=== PATIENT | male | born 1950 | race Caucasian/White ===

== ENCOUNTER 2020-05-07 18:55 | Inpatient (IN) | payer MEDICARE, OTHER ==
[~2020-05-07] VITALS: Ht 170.2 cm; Wt 107.5 kg
--- NOTE | 2020-05-07 19:10 | NUR ---
PT AAO4. FARSI SPEAKING. BIBRA FROM HOME C/O SYNCOPAL EPISODE X4HRS AGO. PT'S BROTHER HAD NOT HEARD FROM THE PT, CALLED 911, PT WAS FOUND ON THE FLOOR AT HIS HOUSE. UPON ASSESSMENT PT AAOX4, ABLE TO MOVE ALL EXT, DENIES ANY PAIN, VSS. PT DOES HAVE HX OF HTN AND DIABETES, BG 116. PT'S MOUTH APPEARD TO BE DRY. MD AT BEDSIDE FOR EVAL. AWAITING OREDRS.
--- NOTE | 2020-05-07 19:11 | NUR ---
LINE ESTABLISHED LAC 18G, BLOOD WORK COLLECTED, SENT TO LAB.
--- NOTE | 2020-05-07 19:19 | NUR ---
PT UNABLE TO URINATE. WILL WAIT FOR 1L NS TO INFUSE.
[2020-05-07] MEDS ORDERED: IV NS 0.9% 1,000 ML BAG IV ONE (19:30)
--- NOTE | 2020-05-07 19:39 | NUR ---
NELLYID SWABBED, SENT TO LAB.
[2020-05-07 19:42] LABS: BASOPHILS % (AUTO) 0.3 % (0.0-2.0); EOSINOPHILS % (AUTO) 0.1 % (0.0-6.0); HEMATOCRIT 43 % (39-51); HEMOGLOBIN 14.9 g/dL (13.5-17.5); LYMPHOCYTES # (AUTO) 0.4 /CMM (0.8-4.8); MEAN CORPUSCULAR HGB CONC 35 g/dl (31.0-36.0); MEAN CORPUSCULAR VOLUME 87 fL (80-96); MONOCYTES # (AUTO) 0.7 /CMM (0.1-1.30); MONOCYTES % (AUTO) 8.5 % (2.0-12.0); NEUTROPHILS # (AUTO) 7.4 /CMM (1.8-8.9); NEUTROPHILS % (AUTO) 86.1 % (43.0-81.0); PLATELET COUNT (AUTO) 187 /CMM (150-450); RED BLOOD CELL COUNT(AUTO) 4.96 MIL/uL (4.5-6.0); WHITE BLOOD COUNT (AUTO) 8.5 K/uL (4.3-11.0)
[2020-05-07 19:55] LABS: CALCIUM, SERUM 9.5 mg/dL (8.5-10.1); CARBON DIOXIDE 32 mmol/L (21-32); CHLORIDE 96 mmol/L (98-107); GLUCOSE 132 mg/dL (74-106); POTASSIUM 3.5 mmol/L (3.5-5.1); SODIUM SERUM 138 mmol/L (136-145); UREA NITROGEN, BLOOD 18 mg/dL (7-18)
[2020-05-07 20:01] LABS: ALANINE AMINOTRANSFERASE 43 U/L (12-78); ALKALINE PHOSPHATASE 82 U/L (46-116); ASPARTATE AMINOTRANSFERASE 71 U/L (15-37); BILIRUBIN,DIRECT 0.2 mg/dL (0.0-0.2); BILIRUBIN,TOTAL 0.9 mg/dL (0.2-1.0); TOTAL PROTEIN, SERUM 7.9 g/dL (6.4-8.2)
--- NOTE | 2020-05-07 20:12 | NUR ---
BROUGHT TO CT
--- NOTE | 2020-05-07 20:30 | NUR ---
BACK FROM CT.
--- NOTE | 2020-05-07 20:30 | NUR ---
PT UNABLE TO PROVIDE URINE SAMPLE, AWARE.
--- NOTE | 2020-05-07 20:39 | NUR ---
LAB CALLED REGARDING NEGATIVE COVID RESULT.
--- NOTE | 2020-05-07 20:45 | NUR ---
PT SAT 91-94%. PT ASLEEP, BREATHING FROM HIS MOUTH. WILL PLACE PT ON NC.
--- NOTE | 2020-05-07 22:14 | NUR ---
BED ASSIGNMENT 325-1
--- NOTE | 2020-05-07 22:26 | NUR ---
REPORT CALLED TO SUBSTATION OPERATOR TRANSFORMINGNANO CHRISTIE.
[2020-05-07] MEDS ORDERED: ACETAMINOPHEN 325 MG TABLET PO PRN (23:00)
[2020-05-07] MEDS ORDERED: HYDROCODONE/APAP 5/325MG TABLET PO PRN (23:00)
[2020-05-07] MEDS ORDERED: MAGNESIUM HYDROXIDE 30 ML UDC PO PRN (23:00)
[2020-05-07] MEDS ORDERED: ONDANSETRON HCL/PF 4 MG/2 ML VIAL IVP PRN (23:00)
[2020-05-07] MEDS ORDERED: MAG HYDROX/AL HYDROX/SIMETH 30 ML UDC PO PRN (23:00)
[2020-05-07] MEDS ORDERED: Z GUARD REMEDY 2 OZ OINT TP PRN (23:00)
[2020-05-07] MEDS ORDERED: ZOLPIDEM TARTRATE 5 MG TABLET PO PRN (23:00)
--- NOTE | 2020-05-07 23:10 | NUR ---
PT TRANSFERED PER ACLS PROTOCOL
[2020-05-07 23:16] VITALS: BP 122/70
[2020-05-08] VITALS (7 sets, daily range): BP systolic 122–137; BP diastolic 62–93
[2020-05-08] MEDS: ENOXAPARIN SODIUM 40 MG/0.4 ML DISP.SYRIN SQ SCH ×2 (00:14→23:44)
[2020-05-08 06:23] LABS: BASOPHILS % (AUTO) 0.1 % (0.0-2.0); EOSINOPHILS % (AUTO) 0.4 % (0.0-6.0); HEMATOCRIT 39 % (39-51); HEMOGLOBIN 13.2 g/dL (13.5-17.5); LYMPHOCYTES # (AUTO) 0.7 /CMM (0.8-4.8); LYMPHOCYTES % (AUTO) 9.1 % (20.0-44.0); MEAN CORPUSCULAR HGB CONC 34 g/dl (31.0-36.0); MEAN CORPUSCULAR VOLUME 88 fL (80-96); MONOCYTES # (AUTO) 0.9 /CMM (0.1-1.30); MONOCYTES % (AUTO) 12.1 % (2.0-12.0); NEUTROPHILS # (AUTO) 5.7 /CMM (1.8-8.9); NEUTROPHILS % (AUTO) 78.3 % (43.0-81.0); PLATELET COUNT (AUTO) 161 /CMM (150-450); RED BLOOD CELL COUNT(AUTO) 4.44 MIL/uL (4.5-6.0); WHITE BLOOD COUNT (AUTO) 7.3 K/uL (4.3-11.0)
--- NOTE | 2020-05-08 06:52 | NUR ---
RN NOTES ADMITTED PATIENT FROM ED, FROM HOME, HAD EPISODE OF UNWITNESSED SYNCOPE, BROTHER FOUND PATIENT ON FLOOR, ALERT AND ORIENTED X3, FARSI SPEAKING, WITH LITTLE [place] KOREAN, 2LPM VIA NC PRN WHEN ASLEEP, ROOM AIR SPO2 92%, ON 2LPM VIA NC 97%, NO COMPLAIN OF PAIN, BEDREST, UNSTEADY GAIT, SINUS TACHY 108 ON THE TELE, AM LABS, FALL PRECAUTION
[2020-05-08 07:09] LABS: ALBUMIN 3.3 g/dL (3.4-5.0); BILIRUBIN,DIRECT 0.1 mg/dL (0.0-0.2); BILIRUBIN,TOTAL 0.6 mg/dL (0.2-1.0); CALCIUM, SERUM 8.8 mg/dL (8.5-10.1); CREATININE 0.9 mg/dL (0.6-1.3); PHOSPHORUS 2.9 mg/dL (2.5-4.9); POTASSIUM 3.4 mmol/L (3.5-5.1)
[2020-05-08 07:14] LABS: THYROID STIMULATING HORMONE 1.026 uIU/mL (0.358-3.74)
[2020-05-08] MEDS: PANTOPRAZOLE 40 MG TABLET.DR PO SCH (08:00)
[2020-05-08] MEDS ORDERED: METO1TAB10 PO (08:52)
[2020-05-08] MEDS ORDERED: ASPI-1169 PO (08:52)
[2020-05-08] MEDS ORDERED: LOSA100T3 PO (08:52)
[2020-05-08] MEDS ORDERED: SIMV-46 PO (08:52)
--- NOTE | 2020-05-08 09:00 | NUR ---
MS/gauntlet pairer Morning medications administered as ordered.
--- NOTE | 2020-05-08 09:30 | NUR ---
MS/RN S/B Dr Hood Seen by MD - neuro and cardio consults ordered.
[2020-05-08] MEDS: POTASSIUM CL. PREMIX PERIPHER. 50 ML IV SCH ×2 (09:34→10:03)
--- NOTE | 2020-05-08 11:00 | NUR ---
MS/RN 2D Echo 2D echo carried out, 55% ejection fracture.
--- NOTE | 2020-05-08 13:28 | NUR ---
MS/finished goods planner update Patient's brother called, up date given.
--- NOTE | 2020-05-08 18:23 | NUR ---
MS/RN End note Continue to wait for neuro consult. Per patient, he was recently treated by Dr Alcocer at [facility] and would like to be transferred back. marketing compliance manager Mary Beth made aware, no beds available at this time. Patient informed. All needs attended, all questions and concerns addressed, will endorse to architecture technician.
--- NOTE | 2020-05-08 19:30 | NUR ---
TELE/RN OPENING NOTES RECEIVED PATIENT IN BED RESTING. PATIENT IS ALERT AND ORIENTED X 3. BREATHING IS EVEN AND UNLABORED, NO SIGNS OF RESPIRATORY DISTRESS NOTED. PATIENT HAS IV ACCESS ON LAC #18 G HL. PATIENT IN NO SIGNS OF DISTRESS. SAFETY MEASURES ARE IN PLACE, BED IS LOCKED ANS PLACED IN THE LOWEST POSITION, SIDE RAILS UP X 3, CALL LIGHT IS WITHIN REACH. WILL CONTINUE TO MONITOR.
[2020-05-09] VITALS: BP 122/80
[2020-05-09 04:00] VITALS: BP 155/94
--- NOTE | 2020-05-09 07:30 | NUR ---
TELE/RN CLOSING NOTES PATIENT IN BED RESTING. PATIENT IS ALERT AND ORIENTED X 3. BREATHING IS EVEN AND UNLABORED, NO SIGNS OF RESPIRATORY DISTRESS NOTED. PATIENT HAS IV ACCESS ON LAC #18 G HL. PATIENT IN NO SIGNS OF DISTRESS. ALL NEEDS MET DURING SHIFT. SAFETY MEASURES ARE IN PLACE, BED IS LOCKED ANS PLACED IN THE LOWEST POSITION, SIDE RAILS UP X 3, CALL LIGHT IS WITHIN REACH. WILL ENDORSE TO DAY SHIFT.
--- NOTE | 2020-05-09 08:00 | NUR ---
RN OPENING NOTE PT A/O X3 AND SPANISH SPEAKING. PT IS ABLE TO COMMUNICATE NEEDS TO NURSES. NO COMPLAINT OF PAIN. CURRENTLY ON 2L O2. NO RESPIRATORY DISTRESS PRESENT. ABLE TO AMBULATE TO THE BATHROOM WITH WALKER. STAND BY ASSIST. URINAL AT BEDSIDE. SKIN IS INTACT. SAFETY MEASURES IN PLACE. SIDE RAILS RAISED. CALL LIGHT WITH PATIENT. BED LOWERED. WILL CONTINUE TO MONITOR.
[2020-05-09 08:03] VITALS: BP 112/79
[2020-05-09 08:04] LABS: BASOPHILS % (AUTO) 0.5 % (0.0-2.0); EOSINOPHILS % (AUTO) 2.4 % (0.0-6.0); HEMATOCRIT 39 % (39-51); HEMOGLOBIN 13.5 g/dL (13.5-17.5); LYMPHOCYTES # (AUTO) 0.7 /CMM (0.8-4.8); LYMPHOCYTES % (AUTO) 14.1 % (20.0-44.0); MEAN CORPUSCULAR HGB CONC 34 g/dl (31.0-36.0); MEAN CORPUSCULAR VOLUME 87 fL (80-96); MONOCYTES # (AUTO) 0.7 /CMM (0.1-1.30); MONOCYTES % (AUTO) 13.5 % (2.0-12.0); NEUTROPHILS # (AUTO) 3.5 /CMM (1.8-8.9); NEUTROPHILS % (AUTO) 69.5 % (43.0-81.0); PLATELET COUNT (AUTO) 170 /CMM (150-450); RED BLOOD CELL COUNT(AUTO) 4.51 MIL/uL (4.5-6.0); WHITE BLOOD COUNT (AUTO) 5.1 K/uL (4.3-11.0)
[2020-05-09 08:32] LABS: CREATININE 0.7 mg/dL (0.6-1.3); POTASSIUM 3.4 mmol/L (3.5-5.1)
[2020-05-09] MEDS: PANTOPRAZOLE 40 MG TABLET.DR PO SCH (08:43)
[2020-05-09] MEDS: POTASSIUM CHLORIDE 20 MEQ TAB.PRT.SR PO SCH ×2 (10:33→11:56)
--- NOTE | 2020-05-09 19:30 | NUR ---
RN OPENING NOTE PT A/O X3 AND CZECH SPEAKING. PT IS ABLE TO COMMUNICATE NEEDS TO NURSES. NO COMPLAINT OF PAIN. CURRENTLY ON 2L O2. NO RESPIRATORY DISTRESS PRESENT. ABLE TO AMBULATE TO THE BATHROOM WITH WALKER. STAND BY ASSIST. URINAL AT BEDSIDE. SKIN IS INTACT. SAFETY MEASURES IN PLACE. SIDE RAILS RAISED. CALL LIGHT WITH PATIENT. BED LOWERED. ROUTINE MEDS GIVEN. REPORT GIVEN TO NIGHT NURSE.
--- NOTE | 2020-05-09 19:54 | NUR ---
MS RN OPENING NOTES PATIENT A/OX 4; ABLE TO MAKE NEEDS KNOWN. ON O2 VIA 2LPM NASAL CANNULA; TOLERATING WELL. IV TO LEFT AC #18G; PATENT AND INTACT. SAFETY MEASURES IN PLACE; BED IN LOWEST LOCKED POSITION, SIDERAILS UP X2; CALL LIGHT WITHIN EASY REACH, WALKER WITHIN EASY REACH. WILL CONTINUE PLAN OF CARE.
[2020-05-09 20:00] VITALS: BP 137/78
[2020-05-09] MEDS: ENOXAPARIN SODIUM 40 MG/0.4 ML DISP.SYRIN SQ SCH (22:08)
--- NOTE | 2020-05-09 23:52 | NUR ---
MS RN NOTES NOTIFIED DR. MONTEZ THAT PT HAS HX OF DM; ORDERED MODERATE SLIDING SCALE INSULIN AC / HS. ORDERS CARRIED OUT. WILL CONTINUE TO MONITOR.
[2020-05-10] MEDS ORDERED: *INSULIN REGULAR(HUMULIN R)HUM 100 UNIT/ML VIAL SQ PRN
[2020-05-10] MEDS ORDERED: DEXTROSE 50%-WATER 50 ML DISP.SYRIN IV PRN
--- NOTE | 2020-05-10 06:17 | NUR ---
MS RN CLOSING NOTES PATIENT A/OX 4; ABLE TO MAKE NEEDS KNOWN. ON ROOM AIR; TOLERATING WELL. IV TO LEFT AC #18G; PATENT AND INTACT. SAFETY MEASURES IN PLACE; BED IN LOWEST LOCKED POSITION, SIDERAILS UP X2; CALL LIGHT WITHIN EASY REACH, WALKER WITHIN EASY REACH. WILL ENDORSE BHAKTI TO ONCOMING MORNING RN.
[2020-05-10] MEDS: BLOOD SUGAR DIAGNOSTIC 1 EACH STRIP VI SCH ×4 (06:53→22:18)
[2020-05-10] MEDS: INSULIN REGULAR, HUMAN 100 UNIT/ML 3 ML VIAL SQ PRN ×2 (06:53→18:21)
[2020-05-10] MEDS: PANTOPRAZOLE 40 MG TABLET.DR PO SCH (06:54)
[2020-05-10 07:35] LABS: BASOPHILS % (AUTO) 0.5 % (0.0-2.0); HEMATOCRIT 39 % (39-51); HEMOGLOBIN 13.1 g/dL (13.5-17.5); LYMPHOCYTES # (AUTO) 0.6 /CMM (0.8-4.8); LYMPHOCYTES % (AUTO) 15.5 % (20.0-44.0); MEAN CORPUSCULAR HGB CONC 34 g/dl (31.0-36.0); MEAN CORPUSCULAR VOLUME 88 fL (80-96); MONOCYTES # (AUTO) 0.6 /CMM (0.1-1.30); MONOCYTES % (AUTO) 13.6 % (2.0-12.0); NEUTROPHILS # (AUTO) 2.7 /CMM (1.8-8.9); NEUTROPHILS % (AUTO) 66.4 % (43.0-81.0); PLATELET COUNT (AUTO) 208 /CMM (150-450); RED BLOOD CELL COUNT(AUTO) 4.42 MIL/uL (4.5-6.0); WHITE BLOOD COUNT (AUTO) 4.1 K/uL (4.3-11.0)
--- NOTE | 2020-05-10 07:38 | NUR ---
MS RN OPENING NOTES PATIENT IN BED. A/O X3. NC ON 2 LPM. NO SOB NOTED. NO S/S OF RESPIRATORY DISTRESS. IV ACCESS ON L AC #18 G SL, INTACT. SAFETY MEASURES MAINTAINED. BED IN LOWEST POSITION, BRAKES LOCKED. SIDE RAILS UP X 2. CALL LIGHT WITHIN REACH. WILL CONTINUE PLAN OF CARE.
[2020-05-10 07:55] LABS: CREATININE 0.7 mg/dL (0.6-1.3); POTASSIUM 3.7 mmol/L (3.5-5.1)
[2020-05-10 08:00] VITALS: BP 140/99
[2020-05-10 16:00] VITALS: BP 147/74
--- NOTE | 2020-05-10 18:58 | NUR ---
MS RN CLOSING NOTES PATIENT IN BED. A/O X4. NO SOB NOTED. NO S/S OF RESPIRATORY DISTRESS. REFUSED IV ACCESS. ALL NEEDS HAVE BEEN MET. INSULIN GIVEN PER PROTOCOL. SAFETY MEASURES MAINTAINED. BED IN LOWEST POSITION, BRAKES LOCKED. SIDE RAILS UP X2. CALL LIGHT WITHIN REACH. WILL ENDORSE TO ROVING MACHINE OPERATOR FOR BHAKTI.
--- NOTE | 2020-05-10 19:44 | NUR ---
MS RN OPENING NOTES PATIENT A/OX 4; ABLE TO MAKE NEEDS KNOWN. ON ROOM AIR; TOLERATING WELL. NO IV ACCESS; REFUSED TO HAVE IV INSERTED. NO S/S OF PAIN OR DISTRESS AT THIS TIME. SAFETY MEASURES IN PLACE; BED IN LOWEST LOCKED POSITION, SIDERAILS UP X2; CALL LIGHT WITHIN EASY REACH, WALKER WITHIN EASY REACH. WILL CONTINUE PLAN OF CARE.
[2020-05-10] MEDS: ENOXAPARIN SODIUM 40 MG/0.4 ML DISP.SYRIN SQ SCH (22:36)
[2020-05-11] MEDS: PANTOPRAZOLE 40 MG TABLET.DR PO SCH (07:08)
[2020-05-11] MEDS: BLOOD SUGAR DIAGNOSTIC 1 EACH STRIP VI SCH (07:08)
[2020-05-11] MEDS: INSULIN REGULAR, HUMAN 100 UNIT/ML 3 ML VIAL SQ PRN (07:08)
--- NOTE | 2020-05-11 07:20 | NUR ---
MS RN OPENING NOTES PATIENT IN BED. A/O X3. NC ON 2 LPM. NO SOB NOTED. IN NO APPARENT DISTRESS. STILL REFUSING TO HAVE AN IV ACCESS. SAFETY MEASURES MAINTAINED. BED IN LOWEST POSITION, BRAKES LOCKED. SIDE RAILS UP X 2. CALL LIGHT WITHIN REACH. WILL CONTINUE PLAN OF CARE.
[2020-05-11 08:00] VITALS: BP 135/80
--- NOTE | 2020-05-11 11:20 | NUR ---
MS RN NOTES PATIENT IS DISCHARGED. HEALTH TEACHING AND DISCHARGE INSTRUCTIONS WERE GIVEN TO THE PT. VERBALIZED UNDERSTANDING. WITH VS BP 137/78 NM 85 RR 16 TEMP 98.6 ID BADGE REMOVED. PT WAS PICKED UP BY HIS BROTHER VIA CAR.
== END 2020-05-11 11:30 | disposition home or self-care (01) | DRG 74 ==
LOC: ER 19:09 → TELE 22:42 → MED 05-09 09:27
PROVIDERS: ADMIT Student in an Organized Health Care Education/Training Program; ATTEND Internal Medicine
DX: G90.8 Other disorders of autonomic nervous system (principal); G91.2 (Idiopathic) normal pressure hydrocephalus; E44.1 Mild protein-calorie malnutrition; E11.65 Type 2 diabetes mellitus with hyperglycemia; E78.5 Hyperlipidemia, unspecified; E87.6 Hypokalemia; I10 Essential (primary) hypertension; E78.00 Pure hypercholesterolemia, unspecified; Z87.891 Personal history of nicotine dependence; R74.01 Elevation of levels of liver transaminase levels; E88.09 Other disorders of plasma-protein metabolism, not elsewhere classified; Z86.16 Personal history of COVID-19; W19.XXXA Unspecified fall, initial encounter; Y92.009 Unspecified place in unspecified non-institutional (private) residence as the place of occurrence of the external cause
CPT/HCPCS: 36415; 70450-TC; 71045-TC; 80048-TC; 80061-TC; 80076-TC; 82962-TC; 83735-TC; 84100-TC; 84443-TC; 84484-TC; 85025-TC; 87081-TC; 93307-TC; 93880-TC; C9803; G0378; J1650; J1815; J3480; J7030